=== PATIENT | female | born 2000 | race Caucasian/White ===

== ENCOUNTER 2023-03-02 01:37 | Emergency (ER) | payer MEDICAID, SELFPAY ==
--- NOTE | 2023-03-02 | ECG_ITS ---
Test Reason : DIZZINESS Blood Pressure : / mmHG Vent. Rate : 088 BPM Atrial Rate : 088 BPM P-R Int : 184 ms QRS Dur : 068 ms QT Int : 346 ms P-R-T Axes : 059 079 062 degrees QTc Int : 418 ms Normal sinus rhythm Normal ECG No previous ECGs available Referred By: Generic ED Physician Electronically Signed By:BELL DAVIS
[2023-03-02 01:51] VITALS: BP 104/68; BP 132/72; PULSE 78; PULSE 92; RESP 18; TEMP 36.7; O2SAT 100; O2SAT 97; BMI 22.9
[2023-03-02 01:58] VITALS: BP 103/60; PULSE 81; RESP 22; O2SAT 99
--- NOTE | 2023-03-02 02:07 | ED_ITS ---
HPI - Seizure General Chief Complaint: Seizure Stated Complaint: seizurew? dizziness Time Seen by Provider: 03/02/23 01:45 Source: patient and EMS Mode of arrival: EMS Limitations: no limitations History of Present Illness HPI Narrative: 22-year-old female with history of seizure disorder currently not on any medic ations presents with an acute seizure. She was at the club where she had had some alcohol marijuana. She was noted to go outside and found unconscious with some tonic clonic movements. There is no head trauma. Is unclear whether there was any postictal confusion. Patient reports her last seizure was 3-7 days ago. Currently, patient denies any headache, nausea, vomiting, fevers, chills. She denies any additional drug use. She denies any focal neurologic deficits. There is no clear relieving or exacerbating features. Her seizure was noted to be severe. Seizure History: Yes Place: the club Related Data Previous Rx's Medication Instructions Recorded levetiracetam 500 mg tablet 500 mg PO Q12H #30 tabs 03/02/23 ([facility]) Allergies Allergy/AdvReac Type Severity Reaction Status Date / Time No Known Allergies Allergy Verified 03/02/23 02:00 Review of Systems Review of Systems: CONSTITUTIONAL: Denies weight loss, fever and chills. HEENT: Denies changes in vision and hearing. RESPIRATORY: Denies SOB and cough. CV: Denies palpitations no CP. GI: Denies abdominal pain, nausea, vomiting and diarrhea. : Denies dysuria and urinary frequency. MSK: Denies myalgia and joint pain. SKIN: Denies rash and pruritus. NEUROLOGICAL: Denies headache and syncope. PSYCHIATRIC: Denies recent changes in mood. Denies anxiety and depression. All other ROS are negative unless in HPI PMFSH Social History Social History Alcohol intake: current Alcohol intake frequency: a few times a month Smoked in Last 30 Days: No Use of substances other than those prescribed or required for medical reasons: Yes Substance Use Type: Marijuana Last Used Substance: Just Prior to Admission Advance Directives: No Advance Directives Information Provided: Yes Patient : No Physical Exam Vital Signs: Vital Signs: Last Vital Signs Temp 98.4 F 03/02/23 03:28 Pulse 97 03/02/23 03:28 Resp 17 03/02/23 03:28 BP 104/45 L 03/02/23 03:28 Pulse Ox 97 03/02/23 03:28 O2 Del Method Room Air 03/02/23 03:28 BMI result Body Mass Index 22.9 GEN: Well developed, no acute distress, alert, oriented HEENT: Normocephalic, atraumatic, normal external ears, nose appears normal, no oropharyngeal edema or exudates Eyes: Normal to appearance Neck: Supple, no lymphadenopathy Respiratory: Talks in complete sentences, no respiratory distress, clear to auscultation bilaterally Cardiovascular: Regular rate and rhythm, no murmurs rubs or gallops Abdomen: Soft, nontender, nondistended, no guarding, no rebound Back: No CVA tenderness Extremities: No clubbing cyanosis or edema Neurologic: No focal neurologic deficits, cranial nerves 2-12 intact, strength is 5/5 bilaterally Skin: No rash Course Course Course Narrative: It is 340 in the morning. Patient's workup is mostly complete. We are pending a toxicology screen. She wishes to go home at this time and sleep at home. She does not wish to provide us with urine sample at this time and she does admit to smoking marijuana. Course would be beneficial to determine if there are other intoxicants that could be causing some of her symptoms. Will start the patient on Keppra 500 mg twice daily and refer her to Neurology. Medications Administered Discontinued Medications Generic Name Dose Route Start Last Admin Trade Name Freq PRN Reason Stop Dose Admin Levetiracetam 1,000 mg 03/02/23 02:01 03/02/23 02:28 Levetiracetam 500 Mg/5 Ml Vial IV 03/02/23 02:02 1,000 mg ONCE ONE Administration Medical Decision Making Medical Decision Making [facility] Narrative: 22-year-old female presents with possible seizure. She has had reportedly 2 seizures in the within less than a week. At this point, I believe patient should be on prophylactic medications. I will start the patient on Keppra 1000 mg IV while she is here. She will be with 500 mg twice daily. Differential diagnosis for seizure could be seizure disorder, medication noncompliance, lowering of seizure threshold due to low sodium levels, electrolyte abnormalities, blood sugar, alcohol. Will monitor the patient for further seizure activity. Will check alcohol level and a toxicology screen as well. Will refer the patient to neurology. Differential Diagnosis Differential Diagnoses: The differential diagnosis associated with the presentation includes (See above) Admission/Observation Consideration of admission/observation: Escalation of care including admission/observation considered Lab Data MDM Lab Attestation statement: I reviewed the patient's lab results. 03/02/23 02:05 03/02/23 02:05 Labs: Lab Results 03/02/23 03/02/23 Range/Units 02:05 02:05 WBC 8.6 (4.8-10.8) X10*3/uL RBC 4.02 L (4.20-5.50) X10*6/uL Hgb 11.7 L (12.0-16.0) g/dl Hct 35.8 L (37.0-47.0) % MCV 89.1 (80.0-98.0) fL MCH 29.1 (27.0-33.0) pg MCHC 32.7 (31.0-35.0) g/dl RDW 12.8 (11.0-16.0) % Plt Count 322 (160-400) X10*3/uL MPV 9.1 L (9.4-12.3) fL Immature Gran % (Auto) 0.1 (0.0-0.4) % Neut % (Auto) 53.0 (45-73) % Lymph % (Auto) 29.8 (20-40) % [place] % (Auto) 7.2 (2-11) % Eos % (Auto) 9.0 H (0-4) % Baso % (Auto) 0.9 (0-2) % Lymph # (Auto) 2.6 (1.2-4.9) X10*3/uL [place] # (Auto) 0.6 (0.1-1.2) X10*3/uL Eos # (Auto) 0.8 H (0.0-0.4) X10*3/uL Baso # (Auto) 0.1 (0.0-0.2) X10*3/uL Abs Immat Gran (auto) 0.01 (0.00-0.03) X10*3/uL Absolute Neuts (auto) 4.6 (2.0-8.3) x10*3/uL Absolute Nucleated RBC 0.000 (0.0-0.012) X10*3/uL Nucleated RBC % (auto) 0.0 (0.0-0.2) /100WBC Sodium 142 (135-145) mmol/L Potassium 3.3 (3.3-5.1) mmol/L Chloride 108 (96-108) mmol/L Carbon Dioxide 22 (22-29) mmol/L Anion Gap 15 (12-20) BUN 12 (9-16) mg/dL Creatinine 0.64 (0.5-1.4) mg/dL Estim Creat Clear Calc 93.0 Estimated GFR > 60 Random Glucose 81 (60-115) mg/dL Calcium 9.8 (8.4-10.2) mg/dL Total Bilirubin 0.1 (0.0-1.0) mg/dL AST 14 (5-31) U/L ALT 10 (0-31) U/L Alkaline Phosphatase 51 (39-117) U/L Total Protein 7.3 (6.5-8.0) g/dL Albumin 4.3 (3.5-5.0) g/dL Beta HCG, Quant < 2 mIU/mL Ethyl Alcohol 81 mg/dL Independent Interpretation I performed an independent interpretation of an: EKG (Normal sinus rhythm heart rate 88, no acute ST elevations depressions, normal intervals, normal EKG) Independent Historian Clinical information obtained from an independent historian. History obtained from or confirmed by: EMS Prescription Management I considered prescription management with: Other (Seizure medication) Chronic Conditions Patient?s care impacted by: Other (History of seizure) Discharge Plan Discharge Clinical Impression: Epileptic seizure Patient Disposition: Home, Self-Care Instructions: Epilepsy (ED) Prescriptions: New levetiracetam [Keppra] 500 mg tablet 500 mg PO Q12H Qty: 30 0RF Referrals: Meri Cruz MD [Physician] - 1 week
[2023-03-02 02:10] LABS: MANUAL DIFF FLAG NO
[2023-03-02 02:11] LABS: Basophils Absolute Auto 0.1 X10*3/uL (0.0-0.2); Basophils Percent Auto 0.9 % (0-2); Eosinophils Absolute Auto 0.8 X10*3/uL (0.0-0.4); Hematocrit 35.8 % (37.0-47.0); Hemoglobin 11.7 g/dl (12.0-16.0); Imm Gran Abs Auto 0.01 X10*3/uL (0.00-0.03); Imm Gran Pct Auto 0.1 % (0.0-0.4); Lymphocytes Absolute Auto 2.6 X10*3/uL (1.2-4.9); Lymphocytes Percent Auto 29.8 % (20-40); Mean Corpuscular HGB Conc 32.7 g/dl (31.0-35.0); Mean Corpuscular Hemoglobin 29.1 pg (27.0-33.0); Mean Corpuscular Volume 89.1 fL (80.0-98.0); Mean Platelet Volume 9.1 fL (9.4-12.3); Monocytes Absolute Auto 0.6 X10*3/uL (0.1-1.2); Monocytes Percent Auto 7.2 % (2-11); Neutrophils Absolute Auto 4.6 x10*3/uL (2.0-8.3); Platelet Count 322 X10*3/uL (160-400); Red Blood Count 4.02 X10*6/uL (4.20-5.50); Red Cell Distribution Width 12.8 % (11.0-16.0); White Blood Count 8.6 X10*3/uL (4.8-10.8)
[2023-03-02] MEDS: levETIRAcetam 500 MG/5 ML VIAL 1000 MG IV (02:28)
[2023-03-02 02:32] LABS: Alanine Aminotransferase 10 U/L (0-31); Albumin Level 4.3 g/dL (3.5-5.0); Alkaline Phosphatase 51 U/L (39-117); Anion Gap 15 (12-20); Aspartate Amino Transferase 14 U/L (5-31); Bilirubin Total 0.1 mg/dL (0.0-1.0); Blood Urea Nitrogen 12 mg/dL (9-16); Calcium 9.8 mg/dL (8.4-10.2); Carbon Dioxide 22 mmol/L (22-29); Chloride 108 mmol/L (96-108); Estimated Glomerular Filt Rate > 60; Glucose Random 81 mg/dL (60-115); HCG Quantitative < 2 mIU/mL; Potassium 3.3 mmol/L (3.3-5.1); Sodium 142 mmol/L (135-145); Total Protein 7.3 g/dL (6.5-8.0)
--- NOTE | 2023-03-02 02:32 | PC.NURSE ---
seizure precautions in place, pt resting comfortably, offers no complaints
[2023-03-02 02:50] LABS: Ethanol 81 mg/dL
[2023-03-02 03:28] VITALS: BP 104/45; PULSE 97; RESP 17; TEMP 36.9; O2SAT 97
== END 2023-03-02 04:08 | disposition home or self-care (01) ==
PROVIDERS: Emergency Provider Emergency Medicine
DX: G40.909 Epilepsy, unspecified, not intractable, without status epilepticus (principal)
CPT/HCPCS: 36415; 80053; 80307; 84702; 85025; 93005; 96374; 99284; J1953